=== PATIENT | male | born 1970 | race Caucasian/White ===

== ENCOUNTER 2016-12-03 10:59 | Inpatient (IN) | payer OTHER ==
[~2016-12-03] VITALS: Ht 180.3 cm; Wt 80.9 kg
[2016-12-03 11:39] LABS: BASOPHIL 0.3 % (0-2); EOSINOPHIL 0.7 % (0-5); HCT 47.4 % (42.0-52.0); HGB 16.5 g/dl (13.2-18.0); LYMPHOCYTE 8.9 % (15-48); MCHC 34.8 g/dL (32.0-36.0); MCV 89.1 fL (78.0-100.0); MONOCYTE 3.1 % (0-12); PLT 311 K/uL (150-400); RBC 5.32 M/uL (4.70-6.00)
[2016-12-03 11:49] LABS: WBC 21.3 K/uL (4.0-10.5)
[2016-12-03 12:45] LABS: ALBUMIN 4.6 g/dL (3.5-5.0); BILIRUBIN - TOTAL 0.8 mg/dL (0.1-1.0); CREATININE 1.4 mg/dL (0.7-1.2); GLOBULIN (CALCULATION) 3.4 g/dL (2.2-4.2); POTASSIUM 5.9 mmol/L (3.5-5.1)
[2016-12-03 13:13] LABS: BILIRUBIN NEGATIVE (NEGATIVE); BLOOD NEGATIVE Ery/uL (NEGATIVE); CLARITY CLEAR (CLEAR); COLOR YELLOW (YELLOW); GLUCOSE (U) 3+ mg/dL (NORMAL); KETONE (U) 3+ (LARGE) mg/dL (NEGATIVE); LEUKOCYTES NEGATIVE Leu/uL (NEGATIVE); NITRITE NEGATIVE (NEGATIVE); PROTEIN NEGATIVE (NEGATIVE); SPECIFIC GRAVITY 1.015 (1.001-1.030); UROBILINOGEN 0.2 mg/dL (0.2-1.0); pH 5.5 (5.0-9.0)
[2016-12-03 14:59] LABS: CREATININE 1.3 mg/dL (0.7-1.2)
[2016-12-03 17:18] LABS: PHOSPHORUS 6.1 mg/dL (2.7-4.5)
[2016-12-03 17:22] LABS: TROPONIN T < 0.010 ng/mL
[2016-12-03 19:01] LABS: CREATININE 1.1 mg/dL (0.7-1.2); POTASSIUM 4.2 mmol/L (3.5-5.1)
[2016-12-04 00:49] LABS: CREATININE 0.9 mg/dL (0.7-1.2); POTASSIUM 3.9 mmol/L (3.5-5.1)
[2016-12-04 06:00] LABS: BASOPHIL 0.2 % (0-2); EOSINOPHIL 2.7 % (0-5); HGB 12.2 g/dl (13.2-18.0); LYMPHOCYTE 25.6 % (15-48); MCH 31.9 pg (25.0-31.0); MCHC 35.9 g/dL (32.0-36.0); MONOCYTE 4.8 % (0-12); MPV 9.9 fL (6.0-9.5); NEUTROPHIL 66.7 % (41-80); PLT 224 K/uL (150-400); RBC 3.82 M/uL (4.70-6.00); RDW 12.9 % (11.5-14.0); WBC 13.2 K/uL (4.0-10.5)
[2016-12-04 06:15] LABS: CREATININE 0.9 mg/dL (0.7-1.2); PHOSPHORUS 3.2 mg/dL (2.7-4.5); POTASSIUM 3.7 mmol/L (3.5-5.1)
[2016-12-05 12:17] LABS: MYOGLOBIN 21 ng/mL (26-65); TROPONIN T < 0.010 ng/mL
[2016-12-05 12:31] LABS: PRO-BNP 172 pg/mL (0-125)
== END 2016-12-05 13:02 | disposition home or self-care (01) | DRG 639 ==
LOC: FER 10:59 → FICU 15:30 → FMS 15:30
PROVIDERS: Emergency Medicine; ADMIT Internal Medicine
DX: E13.10 Other specified diabetes mellitus with ketoacidosis without coma (principal); F17.210 Nicotine dependence, cigarettes, uncomplicated; E11.40 Type 2 diabetes mellitus with diabetic neuropathy, unspecified; Z79.4 Long term (current) use of insulin; Z86.73 Personal history of transient ischemic attack (TIA), and cerebral infarction without residual deficits; Z87.11 Personal history of peptic ulcer disease; R00.0 Tachycardia, unspecified; Z79.82 Long term (current) use of aspirin; L84 Corns and callosities; L72.3 Sebaceous cyst
CPT/HCPCS: 36415; 36600; 71010; 80048; 80053; 81003; 82550; 82553; 82803; 82962; 83690; 83874; 83880; 84100; 84484; 85025; 93005; J1644; J1815; J2405